=== PATIENT | female | born 1990 | race Native Hawaiian/Other Pacific Islander ===

== ENCOUNTER 2017-09-27 12:33 | Emergency (ER) | payer OTHER ==
--- NOTE | 2017-09-27 14:37 | OBHP ---
Datetime: 09/27/2017 13:56 IP Adm Impression: Term, intrauterine IP Chief Complaint Other: Evaluation of Tachycardia IP Admit Plan: Discharge home Admit Comment, IP Provider: Patient is a 27 year old at 38w5d NATO 10/06/17 by LMP was sent to L+ D from the office for evaluation of tachycardia. Patient is doing well, offers no complaints at this time. Endorses +FM, denies CTX, VB, LOF. 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: LMP 12/30/16 [facility]- 14 x regular x 3-4 days Denies hx of fibroids, ovarian cysts Denies hx of abnormal pap smears Allergies: NKDA Medications: Levothyroxine 50mcg, PNV Medical Hx: Hypothyroidism Surgical Hx: Denies Social Hx: Denies alcohol, tobacco, drug use Family Hx: Mom - healthy ; Father - healthy PE: See above A/P: 27 year old at 38w5d presented for evaluation of tachycardia -Stable, afebrile -Tracing reactive, Category I -Discussed case with Dr Cagle, patient to return on sunday for NST/BPP -Labor precautions given -Follow up with office as regularly scheduled Genie Seymour DO PGY-1 OB attending Patient seen and examined agree with resident exam, assessment and plan Patient sent from office due to tachycardia FHT 140s, mod josue, +accels and no decels.reactive tracinf A/P patient with ? tachycardia in office.fht reactive -patient discharged home -follow up in 3 days for nst and bpp -patient given decreased movemebnt, labor precautions Pelvic Type - PN: Adequate Extremities - PN: Normal Abdomen - PN: Normal Back - PN: Normal Lungs - PN: Normal Heart - PN: Normal Neurologic - PN: Normal General - PN: Normal FHR - Baseline A Provider: 145 Contraction Comments Provider: irreg Comments, ACOG Physical Exam: VSS Gen: AAOx3 Abd: Soft, gravid Ext: No clubbing, cyanosis, edema SVE: 1/thick/high EGA AdmitDate IP: 38.5 Vital Signs Provider: Reviewed IP Chief Complaint: Other NICHD Variability Prov Fetus A: Moderate 6-25bpm NICHD Accel Fetus A IP Provider: 15X15 FHR Category Provider Fetus A: Category I NICHD Decel Fetus A IP Provider: None Dilatation, Provider: 1 Effacement, Provider: thick Station, Provider: high DTRs - PN: Normal
[2017-09-27 18:25] VITALS: BP 90/52; PULSE 92; RESP 18; TEMP 97.2; O2SAT 96
== END 2017-09-27 14:10 | disposition home or self-care (01) ==
LOC: C.EROB 12:33
DX: O26.893 Other specified pregnancy related conditions, third trimester (principal); Z3A.38 38 weeks gestation of pregnancy

== ENCOUNTER 2017-10-01 09:52 | Emergency (ER) | payer OTHER ==
--- NOTE | 2017-10-01 10:58 | OBHP ---
Datetime: 10/01/2017 10:53 IP Adm Impression: Term, intrauterine IP Chief Complaint Other: nst IP Admit Plan: Discharge home Admit Comment, IP Provider: at 39=weeks her for nst, no ctxs, vb, lof,+fm obhx primi pmh de med pnv all nkda psh de soch de nst 130 mod josue ctg1 a/p at 39+weeks here for NST PLAN DC HOME LABOR GIVEN PO HYRA F/U DR Bautista IN 1-3 DAYS Pelvic Type - PN: Adequate Extremities - PN: Normal Abdomen - PN: Normal Back - PN: Normal Breast - PN: Normal Lungs - PN: Normal Heart - PN: Normal Thyroid - PN: Normal Neurologic - PN: Normal HEENT - PN: Normal General - PN: Normal FHR - Baseline A Provider: 130 Contraction Comments Provider: occ EGA AdmitDate IP: 39.2 Vital Signs Provider: Reviewed; Within Normal Limits IP Chief Complaint: Other NICHD Variability Prov Fetus A: Moderate 6-25bpm NICHD Accel Fetus A IP Provider: 15X15 FHR Category Provider Fetus A: Category I Genitourinary Exam: Normal DTRs - PN: Normal
--- NOTE | 2017-10-01 11:00 | OBDCSUM ---
Datetime: 10/01/2017 10:58 Discharged to, Provider: Home Follow up at, Provider: 1-3 Follow up in weeks, Provider: DR ALVARADO Discharge Comment, Provider: DC HOME LABOR GIVEN PO HYRA F/U DR Bautista IN 1-3 DAYS Discharge Diagnosis Prov Other: NST 39WEEK
[2017-10-01 15:33] VITALS: BP 106/57; PULSE 104; RESP 18; TEMP 98.5; O2SAT 100
== END 2017-10-01 11:16 | disposition home or self-care (01) ==
LOC: C.EROB 09:52
DX: Z36.9 Encounter for antenatal screening, unspecified (principal); Z3A.39 39 weeks gestation of pregnancy

== ENCOUNTER 2017-10-04 11:01 | Emergency (ER) | payer OTHER ==
[2017-10-04 16:21] VITALS: BP 110/67; PULSE 100; RESP 16; TEMP 98.2; O2SAT 100
--- NOTE | 2017-10-04 22:20 | OBHP ---
Datetime: 10/04/2017 11:43 IP Adm Impression: Term, intrauterine IP Admit Plan: Discharge home Admit Comment, IP Provider: Patient is a 27 year old at 39w5d with NATO 10/06/17 by LMP presents to L+D for vaginal bleeding. Patient states that she was seen in the office yesterday by Dr Gurjit mtz nd had a cervical exam. This morning is when she noticed a small amount of bright red blood in her un derwear. Also states that she has been having white discharge 2-3 times since last night. Denies any recent trauma or intercourse. Endorses +FM, denies CTX, LOF. 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 Hx: LMP 12/30/16 [facility] 14 x regular x 3-4 days Denies hx of STIs, Fibroids, Ovarian cysts Denies hx of abnormal pap smears Allergies: NKDA Medications: Thyronorm 25 mcg daily, PNV daily Medical Hx: Hypothyroidism Surgical Hx: Denies Social Hx: Denies alcohol, tobacco, drug use; legally Family Hx: Mother age 60 - healthy; Father age 60 - healthy PE: See above A/P: 27 year old at 39w5d presents for vaginal spotting -Stable, afebrile -Category I tracing -Not in labor -Will discharge home -Continue PNV, Labor precautions given -Patient is scheduled induction of labor on Sunday10/07/17 -Plan d/w attending Genie Seymour DO PGY-1 Attending Note: Patient seen, evaluated and examined by me with the Resident. I agree withthe doc umentation of events as above. Patient is clinically stable. Plan: 1) as above. FHR - Baseline A Provider: 140 Membranes, Provider: Intact Contraction Comments Provider: irreg Comments, ACOG Physical Exam: VSS Gen: AAOx3 CV: RRR Lungs: CTA B/L Abd: Soft, gravid Ext: No clubbing, cyanosis, edema SSE: No bleeding visualized, +white discharge SVE: 1/thick/high IP Hx Assessment: The History has been Reviewed and is Current EGA AdmitDate IP: 39.5 Vital Signs Provider: Reviewed IP Chief Complaint: Vaginal bleeding NICHD Variability Prov Fetus A: Moderate 6-25bpm NICHD Accel Fetus A IP Provider: 15X15 FHR Category Provider Fetus A: Category I NICHD Decel Fetus A IP Provider: None Dilatation, Provider: 1 Effacement, Provider: thick Station, Provider: high
== END 2017-10-04 12:11 | disposition home or self-care (01) ==
LOC: C.EROB 11:01
DX: O26.853 Spotting complicating pregnancy, third trimester (principal); Z3A.39 39 weeks gestation of pregnancy

== ENCOUNTER 2017-10-07 19:50 | Inpatient (IN) | payer OTHER ==
[2017-10-07 20:04] VITALS: BMI 27.4
[2017-10-07] MEDS: Lactated Ringer's 1,000 ML IV SCH (21:45)
[2017-10-07] MEDS ORDERED: Nalbuphine 20 mg/ml Inj (1 ml) IVP PRN (21:45)
[2017-10-07] MEDS ORDERED: Lactated Ringer's 1,000 ML IV SCH (21:45)
--- NOTE | 2017-10-07 21:50 | OBADHP ---
Datetime: 10/07/2017 21:21 Admit Comment, IP Provider: Pt is a 27yo G1 edc 10/06 by lmp _ 8wk us presents for scheduled inductio n. +FM, denies CTX, LOF. 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 pt d/w dr patel. states she initial ob labs nl and will bring them in tomorrw. she desires cervidel for induction. Pelvic Type - PN: Adequate Extremities - PN: Normal Abdomen - PN: Normal Back - PN: Normal Lungs - PN: Normal Heart - PN: Normal Neurologic - PN: Normal HEENT - PN: Normal General - PN: Normal Presentation-Admit: Vertex FHR - Baseline A Provider: 140 Membranes, Provider: Intact Contraction Comments Provider: q4-8min Vital Signs Provider: Within Normal Limits IP Chief Complaint: Scheduled induction of labor NICHD Variability Prov Fetus A: Moderate 6-25bpm NICHD Accel Fetus A IP Provider: 15X15 FHR Category Provider Fetus A: Category I NICHD Decel Fetus A IP Provider: None Dilatation, Provider: 2 Genitourinary Exam: Normal EGA AdmitDate IP: 40.1 IP Adm Impression: Term, intrauterine IP Admit Plan: Admit to unit; Initiate labor induction protocol Datetime: 10/04/2017 11:43 Comments, ACOG Physical Exam: VSS Gen: AAOx3 CV: RRR Lungs: CTA B/L Abd: Soft, gravid Ext: No clubbing, cyanosis, edema SSE: No bleeding visualized, +white discharge SVE: 1/thick/high IP Hx Assessment: The History has been Reviewed and is Current Effacement, Provider: garima Gee, Provider: high Datetime: 10/01/2017 10:53 IP Chief Complaint Other: nst Breast - PN: Normal Thyroid - PN: Normal DTRs - PN: Normal
[2017-10-07 22:21] LABS: BASO % 0.2 % (0.0-2.0); EOS # 0.1 K/uL (0.0-0.7); EOS % 1.1 % (0.0-4.0); LYMPH # 1.7 K/uL (1.0-4.3); LYMPH % 18.6 % (20.0-40.0); MEAN CELL VOLUME 86.7 fL (81.0-99.0); MEAN CORPUSCULAR HEMOGLOBIN 28.9 pg (27.0-31.0); MEAN CORPUSCULAR HGB CONC 33.4 g/dL (33.0-37.0); MEAN PLATELET VOLUME 8.8 fL (7.2-11.7); MONO # 0.7 K/uL (0.0-0.8); MONO % 7.8 % (0.0-10.0); RED CELL DISTRIBUTION WIDTH 13.8 % (11.5-14.5); WHITE BLOOD COUNT 9.3 K/uL (4.8-10.8)
[2017-10-08] MEDS: Lactated Ringer's 1,000 ML IV SCH (06:00)
[2017-10-08] MEDS ORDERED: Levothyroxine 25 MCG TAB PO ONE (12:15)
[2017-10-08] MEDS ORDERED: Bupivacaine 0.125%/FentaNYL 200 ML EPI ONE (13:22)
--- NOTE | 2017-10-08 14:21 | OBPN ---
Datetime: 10/08/2017 14:11 IP Progress Impression: Normal progression of labor IP Procedures: Sterile Vag Exam Membranes, Provider: Intact Contraction Comments Provider: 3-4 minutes FHR - Baseline A Provider: 145 Gestation - Est Wks by US: 40w 2d Presentation-Admit: Vertex NICHD Accel Fetus A IP Provider: 15X15 FHR Category Provider Fetus A: Category I NICHD Variability Prov Fetus A: Minimal - Undetectable to <5bpm Dilatation, Provider: 3-4 Effacement, Provider: 50 Station, Provider: -3 NICHD Decel Fetus A IP Provider: None Datetime: 10/08/2017 11:36 IP Progress Plan: Continue present management; Anesthesia consult; Anticipate Vaginal Delivery IP Progress Note Comment: Patient examined at 1125 hours, received in left lateral position, inNAD. (+) FM. (+) ctx and low back pain, pain scale 6/10. Cervical exam - as above. Cervidil removed Assessment: 27 y.o. P0, 40w 2d, IOL; with approprite cervical progress. Hypothyroid in ; on medications. Category 1 tracing. Patient is receptive to epidural for pain relief. Clinically stab le. Plan: 1) Light meal (sandwich) x 1 now 2) Give synthroid 25 mg p.o. x 1 dose now 3) Notify anesthesia 4) expectant management 5) Anticipate vaginal delivery - as per, and discussed with, Dr. Florence Vital Signs Provider: Reviewed; Within Normal Limits
--- NOTE | 2017-10-08 18:10 | OBPN ---
Datetime: 10/08/2017 18:05 IP Progress Impression: Normal progression of labor IP Procedures: Sterile Vag Exam IP Progress Plan: Continue present management; Anticipate Vaginal Delivery Membranes, Provider: Intact Contraction Comments Provider: 2-4 FHR - Baseline A Provider: 135 Gestation - Est Wks by US: 40w 2d Presentation-Admit: Vertex IP Progress Note Comment: S/P 1 episode of vomiting. Feels better; had c/o dizziness and nausea appr oximtely 45 min prior. Cervical exam: as above. Assessment: 27 yo P0, 40w 2d, IOL, S/P cervidil x 1, entering active phase of labor. Hypothyroid o n synthroid. Category 1 tracing. Clincally stable. Plan: 1) continue expectant management 2) Anticipate vaginal delivery - as per, and discussed with, Dr. Naman THURMAN Accel Fetus A IP Provider: 10X10 FHR Category Provider Fetus A: Category I NICHD Variability Prov Fetus A: Moderate 6-25bpm Dilatation, Provider: 4-5 Effacement, Provider: 90 Station, Provider: -2 NICHHarriett Decel Fetus A IP Provider: None
[2017-10-08] MEDS ORDERED: Bupivacaine HCl 0.25% PF (10 ml) Inj ONE (22:11)
[2017-10-08] MEDS ORDERED: Oxytocin 30 UNIT 30 UNITS/500 ML BAG IV ONE (22:48)
[2017-10-08] MEDS ORDERED: Oxytocin 30 UNIT 30 UNITS/500 ML BAG IV SCH (23:00)
--- NOTE | 2017-10-09 02:10 | OBDS ---
DELIVERY PERSONNEL Nurse Director Of Payroll Certified: N/Adolph Delivery Doctor: DR SARAH BETH Mckeon Nurse: N/Adolph Obstetrics Gyn Physician: Skylar Breen RN Anesthesiologist: DR ROSARIO Resident: NRommel MATERNAL INFORMATION Delivery Anesthesia: Epidural Medications in Delivery: PITOCIN Estimated Blood Loss (ml): 400 Placenta Cultured: No Maternal Complications: Abnormal Cord Length Provider Comments: vacuum applied appropriate +2 station for reccurent deep variable decelration to shorten second stage, HARRISON, left shoulder anterior no dystocia, nuchal cord x1 placenta spontaneous an d intact LABOR SUMMARY EDC: 10/06/2017 00:00 No. Babies in Womb: 1 Attempted: No Labor Anesthesia: Epidural LABOR INFORMATION Reason for Induction: Postterm Onset of Labor: 10/08/2017 17:57 Complete Dilatation: 10/08/2017 20:56 Cervical Ripening Agents: Cervidil Oxytocin: N/A Group B Beta Strep: Negative (Annotations: 09/11/2017) Steroids Given: None Reason Steroids Not Administered: Not Applicable MEMBRANES Membranes Rupture Method: Artificial Rupture of Membranes: 10/08/2017 20:16 Length of Rupture (hrs): 4.53 Amniotic Fluid Color: Light Meconium Amniotic Fluid Amount: Small Amniotic Fluid Odor: None STAGES OF LABOR Stage 1 hrs: 2 Stage 1 min: 59 Stage 2 hrs: 3 Stage 2 min: 52 Stage 3 hrs: 0 Stage 3 min: 6 Total Time in Labor hrs: 6 Total Time in Labor min: 57 VAGINAL DELIVERY Laceration Extension: Second Degree Laceration Type: Vaginal Laceration Repair: Yes Laceration Repair Note: main lac 2nd degree, sphincter was reinforced, multiple superficial lacerati ons circumferentially around vagina all repaired BABY A INFORMATION Delivery Date/Time: 10/09/2017 00:48 Method of Delivery: Vaginal Born in Route : No : N/A Forceps: N/A Vacuum Extraction: Successful Shoulder Dystocia : No SHOULDER DYSTOCIA BABY A Delivery Date/Time: 10/09/2017 00:48 PRESENTATION/POSITION BABY A Presentation: Cephalic Cephalic Presentation: Vertex Vertex Position: Right Occipital Anterior Breech Presentation: N/A PLACENTA INFORMATION BABY A Placenta Delivery Time : 10/09/2017 00:54 Placenta Method of Delivery: Expressed Placenta Status: Delivered SCORES BABY A Heart Rate 1 min: >100 bpm Resp Effort 1 min: Good Cry Reflex Irritability 1 min: Cough or Sneeze or Pulls Away Muscle Tone 1 min: Active Motion Color 1 min: Body [place], Extremities Blue Resuscitation Effort 1 min: Tactile Stimulation SCORE 1 MIN: 9 Heart Rate 5 min: >100 bpm Resp Effort 5 min: Good Cry Reflex Irritability 5 min: Cough or Sneeze or Pulls Away Muscle Tone 5 min: Active Motion Color 5 min: Body [place], Extremities Blue Resuscitation Effort 5 min: N/A SCORE 5 MIN: 9 INFANT INFORMATION BABY A Gestational Age at Delivery: 40.3 Gestational Status: Term Outcome : Liveborn Infant Condition : Stable Infant Sex: Female IDENTIFICATION/MEDS BABY A ID Band Number: [id number] ID Band Location: Left Leg; Left Arm Sensor Applied: Yes Sensor Number: [id number] Sensor Location : Cord Clamp Vitamin K Given : Aquamephyton 1 mg IM; Left Thigh Erythromycin Given: Given Both Eyes WEIGHT/LENGTH BABY A Birthweight (gms): 3240 Infant Weight (lb): 7 Infant Weight (oz): 2 Infant Length Inches: 20.00 Length cms: 50.8 CORD INFORMATION BABY A No. Cord Vessels: 3 Nuchal Cord : Around Neck x1, Loose Cord Blood Taken: Yes Infant Suction: Mouth; Nose ASSESSMENT BABY A Infant Complications: Meconium Physical Findings at Delivery: Within Normal Limits; Molding of the Head Respirations: Appears Normal Sql Analyst/ALS Called : Yes Infant Care By: Dr Vera Transferred To: Remains with Mother
--- NOTE | 2017-10-09 02:12 | OBADHP ---
Datetime: 10/08/2017 18:05 Presentation-Admit: Vertex FHR - Baseline A Provider: 135 Membranes, Provider: Intact Contraction Comments Provider: 2-4 Gestation - Est Wks by US: 40w 2d NICHD Variability Prov Fetus A: Moderate 6-25bpm NICHD Accel Fetus A IP Provider: 10X10 FHR Category Provider Fetus A: Category I NICHD Decel Fetus A IP Provider: None Dilatation, Provider: 4-5 Effacement, Provider: 90 Station, Provider: -2 Datetime: 10/08/2017 11:36 Vital Signs Provider: Reviewed; Within Normal Limits Datetime: 10/07/2017 21:21 EGA AdmitDate IP: 40.1
[2017-10-09] MEDS ORDERED: Oxycodone/Acetaminophen 5/325 mg Tab PO PRN (02:14)
[2017-10-09] MEDS: Levothyroxine 25 MCG TAB PO SCH (06:43)
[2017-10-09 08:09] LABS: BASO % 0.1 % (0.0-2.0); EOS % 0.1 % (0.0-4.0); HEMATOCRIT 26.4 % (34.0-47.0); LYMPH # 1.2 K/uL (1.0-4.3); LYMPH % 8.7 % (20.0-40.0); MEAN CELL VOLUME 87.2 fL (81.0-99.0); MEAN CORPUSCULAR HEMOGLOBIN 29.3 pg (27.0-31.0); MEAN CORPUSCULAR HGB CONC 33.6 g/dL (33.0-37.0); MEAN PLATELET VOLUME 8.8 fL (7.2-11.7); MONO # 0.7 K/uL (0.0-0.8); MONO % 5.2 % (0.0-10.0); PLATELET COUNT 164 K/uL (130-400); RED CELL DISTRIBUTION WIDTH 13.5 % (11.5-14.5); WHITE BLOOD COUNT 14.1 K/uL (4.8-10.8)
[2017-10-09 10:21] LABS: TOTAL CELLS COUNTED 100
[2017-10-09 10:22] LABS: NEUTROPHIL 95 % (50-75)
[2017-10-10] MEDS: Levothyroxine 25 MCG TAB PO SCH (06:41)
--- NOTE | 2017-10-10 18:42 | CP.PCM.PN ---
Subjective - Date & Time of Evaluation Date of Evaluation: 10/10/17 Time of Evaluation: 06:00 - Subjective Subjective: Patient denies any acute complaints. She is ambulating, voiding, tolerating regular diet. Breast feeding. Pain is well controlled. Objective - Vital Signs/Intake and Output Vital Signs (last 24 hours): Temp Pulse Resp BP Pulse Ox 98.8 F 89 18 103/67 99 10/10/17 16:00 10/10/17 16:00 10/10/17 16:00 10/10/17 16:00 10/10/17 16:00 - Medications Medications: Current Medications Acetaminophen (Tylenol 650 Mg Supp) 650 mg ND Q6 PRN PRN Reason: Fever >100.4 F Docusate Sodium (Colace) 100 mg PO BID [facility] Last Admin: 10/10/17 10:45 Dose: 100 mg Ibuprofen (Motrin Tab) 600 mg PO Q6 PRN PRN Reason: Pain, Mild (1-3) Last Admin: 10/10/17 10:46 Dose: 600 mg Levothyroxine Sodium (Synthroid) 25 mcg PO DAILY@0630 [facility] Last Admin: 10/10/17 06:41 Dose: 25 mcg Oxycodone/Acetaminophen (Percocet 5/325 Mg Tab) 1 tab PO Q4H PRN PRN Reason: Pain, moderate (4-7) Stop: 10/12/17 02:15 - Labs Labs: 10/09/17 08:02 - Constitutional Appears: Well, No Acute Distress - Head Exam Head Exam: ATRAUMATIC - Eye Exam Eye Exam: Normal appearance - Respiratory Exam Respiratory Exam: NORMAL BREATHING PATTERN - GI/Abdominal Exam GI & Abdominal Exam: Soft - Exam External exam: NORMAL EXTERNAL EXAM - Back Exam Back Exam: NORMAL INSPECTION - Neurological Exam Neurological Exam: Alert, Oriented x3 - Skin Skin Exam: Normal Color
--- NOTE | 2017-10-10 18:44 | CP.PCM.DIS ---
Provider - Provider Date of Admission: 10/07/17 21:47 Attending physician: Anamaria Florence MD Time Spent in preparation of Discharge (in minutes): 15 Diagnosis - Discharge Diagnosis (1) Normal vaginal delivery Status: Acute Hospital Course - Lab Results Lab Results: Most Recent Lab Values WBC 14.1 K/uL (4.8-10.8) H D 10/09/17 08:02 RBC 3.03 Mil/uL (3.80-5.20) L 10/09/17 08:02 Hgb 8.9 g/dL (11.0-16.0) L D 10/09/17 08:02 Hct 26.4 % (34.0-47.0) L 10/09/17 08:02 MCV 87.2 fL (81.0-99.0) 10/09/17 08:02 MCH 29.3 pg (27.0-31.0) 10/09/17 08:02 MCHC 33.6 g/dL (33.0-37.0) 10/09/17 08:02 RDW 13.5 % (11.5-14.5) 10/09/17 08:02 Plt Count 164 K/uL (130-400) 10/09/17 08:02 MPV 8.8 fL (7.2-11.7) 10/09/17 08:02 Neut % (Auto) 85.9 % (50.0-75.0) H 10/09/17 08:02 Lymph % (Auto) 8.7 % (20.0-40.0) L 10/09/17 08:02 Edmunds % (Auto) 5.2 % (0.0-10.0) 10/09/17 08:02 Eos % (Auto) 0.1 % (0.0-4.0) 10/09/17 08:02 Baso % (Auto) 0.1 % (0.0-2.0) 10/09/17 08:02 Neut # 12.1 K/uL (1.8-7.0) H 10/09/17 08:02 Lymph # 1.2 K/uL (1.0-4.3) 10/09/17 08:02 Edmunds # 0.7 K/uL (0.0-0.8) 10/09/17 08:02 Eos # 0.0 K/uL (0.0-0.7) 10/09/17 08:02 Baso # 0.0 K/uL (0.0-0.2) 10/09/17 08:02 Neutrophils % (Manual) 95 % (50-75) H 10/09/17 08:02 Lymphocytes % (Manual) 2 % (20-40) L 10/09/17 08:02 Monocytes % (Manual) 3 % (0-10) 10/09/17 08:02 Platelet Estimate Normal (NORMAL) 10/09/17 08:02 Polychromasia Slight 10/09/17 08:02 Hypochromasia (manual) Slight 10/09/17 08:02 Microcytosis (manual) Slight 10/09/17 08:02 Rubella IgG Antibody Positive (POSITIVE) 10/09/17 08:02 Blood Type B POSITIVE 10/07/17 22:18 Antibody Screen Negative 10/07/17 22:18 - Hospital Course Hospital Course: Patient had an uncomplicated course Discharge Exam - Head Exam Head Exam: ATRAUMATIC - Eye Exam Eye Exam: Normal appearance - Respiratory Exam Respiratory Exam: NORMAL BREATHING PATTERN - GI/Abdominal Exam GI & Abdominal Exam: Soft, Unremarkable - Exam External exam: NORMAL EXTERNAL EXAM - Extremities Exam Extremities exam: normal inspection - Neurological Exam Neurological exam: Alert, Oriented x3 - Psychiatric Exam Psychiatric exam: Normal Affect, Normal Mood - Skin Skin Exam: Normal Color Discharge Plan - Follow Up Plan Condition: GOOD Disposition: DISCHARGED TO HOME CARE Instructions: Depression (GEN), Your Baby (DC), Expression, Collection and Storage of Breastmilk (DC), How to Increase Your Milk Supply (DC), How to Tell if Your Baby is Getting Enough Breast Milk (DC), Jaundice in Newborns (DC), Bleeding (DC)
[2017-10-10 23:37] VITALS: BP 108/70; PULSE 92; RESP 20; TEMP 97.3; O2SAT 98
== END 2017-10-10 19:30 | disposition home or self-care (01) | DRG 775 ==
LOC: C.EROB 19:50 → C.4D 21:47 → C.4M 10-09 03:30
PROVIDERS: ADMIT Obstetrics & Gynecology; ATTEND Obstetrics & Gynecology
PROC: 10E0XZZ Delivery of Products of Conception, External Approach (ICD-10-PCS; principal; 2017-10-09)
PROC: 0KQM0ZZ Repair Perineum Muscle, Open Approach (ICD-10-PCS; 2017-10-09)
PROC: 3E0P7VZ Introduction of Hormone into Female Reproductive, Via Natural or Artificial Opening (ICD-10-PCS; 2017-10-09)
DX: O48.0 Post-term pregnancy (principal); E03.9 Hypothyroidism, unspecified; Z3A.40 40 weeks gestation of pregnancy; O70.1 Second degree perineal laceration during delivery; O99.284 Endocrine, nutritional and metabolic diseases complicating childbirth; O77.0 Labor and delivery complicated by meconium in amniotic fluid; O69.81X0 Labor and delivery complicated by cord around neck, without compression, not applicable or unspecified; Z37.0 Single live birth